=== PATIENT | male | born 1970 | race Caucasian/White ===

== ENCOUNTER 2021-08-28 14:51 | Emergency (ER) | payer SELFPAY ==
[2021-08-28 14:52] VITALS: BP 159/95; PULSE 106; RESP 18; TEMP 36.7; O2SAT 98; BMI 38.4
--- NOTE | 2021-08-28 15:38 | RAD_ITS ---
STUDY: XR Knee Complete 4 Views or More 08/28/2021 4:01 PM REASON FOR EXAM: Male, 50 years old. INJURY pain Notes PT C/O RIGHT KNEE PAIN AFTER MOVING FURNITURE TECHNIQUE: XR Knee Complete 4 Views or More RIGHT COMPARISON: None FINDINGS: Normal visualized distal femur. Normal visualized proximal fibula. Normal proximal tibiofibular articulation. Compression fracture of the lateral tibial plateau. Normal medial femorotibial compartment. Normal lateral femorotibial compartment. Normal patellofemoral articulation. There is a soft tissue prominence in the suprapatellar region suggesting a small volume joint effusion. The soft tissue structures are unremarkable. RAD/Knee 4 or More Views IMPRESSION: Effusion, as described above. Compression fracture of the lateral tibial plateau. Electronically Signed: Hector Carson MD at 16:04 EDT ,
--- NOTE | 2021-08-28 15:59 | EX.ED.DYSGE1 ---
HPI History of Present Illness Chief Complaint: Lower Extremity Injury Informant: patient Onset/Context/Timing Onset: Today Current Severity: Mild Maximum Severity: Moderate Narrative Narrative: Patient presents secondary to right knee pain. He states he was helping someone move furniture this morning when his right knee twisted and he felt a pop along the lateral surface. He has had difficulty with weightbearing since that time. He does note that when he was a teenager he dislocated his kneecap. Since that time he will intermittently have his knee lock up on him. PFSH PFSH Medical History no medical history no medical history Home Medications naproxen [Naprosyn] 500 mg PO BID PRN #20 tab 08/28/21 [Rx Last Taken Unknown] Allergy/AdvReac Type Severity Reaction Status Date / Time doxycycline Allergy Anaphylaxis Verified 08/28/21 14:55 Social History Smoking Status: Former smoker ROS ROS ED Constitutional Constitutional ED: Denies chills or fever(s) Eyes Eyes: Denies change in vision ENT ENT ED: Denies sore throat Cardiovascular Cardiovascular: Denies chest pain Respiratory/Chest Respiratory/Chest: Denies cough or dyspnea Gastrointestinal Gastrointestinal: Denies abdominal pain, nausea or vomiting Genitourinary Genitourinary ED: Denies dysuria Musculoskeletal Musculoskeletal: Reports arthralgias; Denies back pain or neck pain Integumentary Denies rash Neurologic Neurologic: Denies headache(s) or weakness Allergic/Immunologic Allergic/Immunologic ED: Denies urticaria EXAM Physical Exam Const Vital Signs: 08/28/21 14:52 Temperature 98.1 F Temperature Source Temporal Pulse Rate 106 H Respiratory Rate 18 Blood Pressure 159/95 H Blood Pressure Mean 116 Pulse Ox 98 Oxygen Delivery Method Room Air Positive well nourished and well developed General Appearance ED: well developed HEENT Reports moist mucous membranes Eyes PERRL and EOMs intact bilaterally Neck supple Chest Wall inspection of chest normal and palpation of chest normal Resp normal respiratory effort and clear to auscultation bilaterally Cardio regular rate and regular rhythm GI non-tender Palpation: soft Extremity Extremity Narrative: Mild edema to the anterior right knee. No focal tenderness over the anterior, medial, or lateral knee. Ligaments tight on testing. Strong distal pulses and good range of motion. Neuro oriented x3 Sensorium / Orientation: alert Psych mental status grossly normal Skin no rashes or lesions noted MDM MDM MDM Narrative Medical decision making narrative: Right knee x-ray obtained per nursing protocol. Treatment and Re-Evaluation Narrative: Right knee x-rays per my interpretation reveal chronic changes with no acute fracture. Baltazar wrap will be applied and patient be given crutches. He may weight-bear as tolerated. He will be written for naproxen. Referral for orthopedics will be provided if not improving. Discussed with him that he may have ligament, tendon, or meniscal injury that is not visible on x-rays. He voices understanding and agreement. Discharge Plan Triage Chief Complaint: Lower Extremity Injury ED Provider: Alejandra Lorenzo Dx/Rx/DC Orders Clinical Impression: Sprain of right knee Instructions: ED Knee Sprain Prescriptions: New naproxen [Naprosyn] 500 mg tablet 500 mg PO BID PRN (Reason: pain) Qty: 20 RF: 0 Primary Care Provider: NOT,DEFINED Referrals: Omar Segura MD [STAFF PHYSICIAN] - 10-14 Days if not better NOT,DEFINED [Primary Care Provider] - Disposition Disposition: Home, Self Care
== END 2021-08-28 16:18 | disposition home or self-care (01) ==
LOC: ED 16:09
PROVIDERS: Emergency Provider Emergency Medicine; Visit Provider Emergency Medicine
DX: S83.91XA Sprain of unspecified site of right knee, initial encounter (principal); Z87.891 Personal history of nicotine dependence; X50.1XXA Overexertion from prolonged static or awkward postures, initial encounter; Y93.E6 Activity, residential relocation
CPT/HCPCS: 73564; 99283